=== PATIENT | female | born 1995 | race Two or more races ===

== ENCOUNTER 2017-09-12 03:54 | Inpatient (IN) | payer OTHER ==
[~2017-09-12] VITALS: Ht 152.4 cm; Wt 86.6 kg
[2017-09-12] MEDS ORDERED: PRENATAL TABLE1 EACH PO (04:21)
[2017-09-12] MEDS ORDERED: FOLIC ACID0.4 MG PO (04:22)
== END 2017-09-14 11:56 | DRG 775 ==
LOC: OB/GYN 03:54
PROC: 0KQM0ZZ Repair Perineum Muscle, Open Approach (ICD-10-PCS; principal; 2017-09-12)
PROC: 10E0XZZ Delivery of Products of Conception, External Approach (ICD-10-PCS; 2017-09-12)
PROC: 4A1HXCZ Monitoring of Products of Conception, Cardiac Rate, External Approach (ICD-10-PCS; 2017-09-12)
DX: O70.1 Second degree perineal laceration during delivery (principal); Z37.0 Single live birth; Z3A.37 37 weeks gestation of pregnancy